=== PATIENT | male | born 1995 | race African-American/Black ===

== ENCOUNTER 2021-09-18 22:36 | Emergency (ER) | payer OTHER ==
[~2021-09-18] VITALS: Ht 180.3 cm; Wt 68.2 kg
[2021-09-19 00:08] VITALS: BP 145/90; PULSE 70; TEMP 98.7
== END 2021-09-19 00:08 | disposition home or self-care (01) ==
LOC: COL.ER 22:36
DX: U07.1 COVID-19 (principal)